=== PATIENT | female | born 1975 | race Caucasian/White ===

== ENCOUNTER 2025-02-28 10:07 | Emergency (ER) | payer OTHER ==
[2025-02-28 10:13] VITALS: BP 129/60; PULSE 67; RESP 18; TEMP 98.1; BMI 27.4
== END 2025-02-28 10:36 | disposition home or self-care (01) ==
LOC: JERFT 10:07
DX: H60.502 Unspecified acute noninfective otitis externa, left ear (principal)
CPT/HCPCS: 99283-25